=== PATIENT | female | born 1960 | race Caucasian/White ===

== ENCOUNTER 2018-02-09 06:20 | Inpatient (IN) | payer OTHER ==
[2018-02-09] MEDS: FUROSEMIDE 40 MG INJ IV (06:40)
[2018-02-09] MEDS: DILTIAZEM 50 MG INJ IV ×2 (06:41→07:10)
[2018-02-09 06:46] LABS: ADD MAN DIFF? NO
[2018-02-09] MEDS: ALBUTEROL 0.083% (NEB) 2.5 MG/3 ML AMP INH (06:46)
[2018-02-09 06:51] LABS: WHITE BLOOD COUNT 18.8 10^3/ul (4.8-10.8)
[2018-02-09 06:51] LABS: BASOPHILS % 0.2 % (0.0-2.0); EOSINOPHILS # 0.2 10^3/ul (0.0-0.5); HEMATOCRIT 40.3 % (37.0-47.0); HEMOGLOBIN 13.1 g/dl (12.0-16.0); LYMPHOCYTES # 1.7 10^3/ul (0.8-2.9); LYMPHOCYTES % 9.1 % (15.0-51.0); MEAN CORPUSCULAR HEMOGLOBIN 29.2 pg (29.0-33.0); MEAN CORPUSCULAR HGB CONC 32.5 g/dl (32.0-37.0); MEAN CORPUSCULAR VOLUME 89.8 fl (82.0-101.0); MEAN PLATELET VOLUME 10.1 fl (7.4-10.4); MONOCYTE # 0.7 10^3/ul (0.3-0.9); MONOCYTES % 3.6 % (0.0-11.0); NEUTROPHIL # 16.1 10^3/ul (1.6-7.5); NEUTROPHILS % 85.6 % (39.0-77.0); PLATELET COUNT 341 10^3/UL (140-415); RED BLOOD COUNT 4.49 10^6/ul (4.20-5.40); RED CELL DISTRIBUTION WIDTH 13.6 % (11.5-14.5)
[2018-02-09 07:11] LABS: INR 2.27; PARTIAL THROMBOPLASTIN TIME 40.5 Sec (25.0-35.0); PROTIME 25.6 Sec (11.9-14.9)
[2018-02-09 07:11] LABS: LACTIC ACID 2.4 mmol/L (0.5-2.0)
[2018-02-09] MEDS: CEFTRIAXONE 1 GM/50 ML (PMX) 50 ML IVPB (07:11)
[2018-02-09 07:19] LABS: ALANINE AMINOTRANSFERASE 30 IU/L (13-69); ALBUMIN 4.7 g/dl (3.3-4.9); ALBUMIN/GLOBULIN RATIO 1.46; ALKALINE PHOSPHATASE 74 IU/L (42-121); ANION GAP 21 (8-16); ASPARTATE AMINO TRANSFERASE 21 IU/L (15-46); BILIRUBIN,INDIRECT 0.1 mg/dl (0-1.1); BILIRUBIN,TOTAL 0.1 mg/dl (0.2-1.3); BLOOD UREA NITROGEN 23 mg/dl (7-20); CALCIUM 9.3 mg/dl (8.4-10.2); CARBON DIOXIDE 26 mmol/L (21-31); CHLORIDE 99 mmol/L (97-110); CREATININE 0.65 mg/dl (0.44-1.00); GLUCOSE 238 mg/dl (70-220); POTASSIUM 3.7 mmol/L (3.5-5.1); SODIUM 142 mmol/L (135-144); TOTAL PROTEIN 7.9 g/dl (6.1-8.1)
[2018-02-09] MEDS: METHYLPREDNISOLONE 125 MG INJ IV ×3 (07:29→17:49)
[2018-02-09 07:31] LABS: B-TYPE NATRIURETIC PEPTIDE 200 PG/ML (0-125); TROPONIN-I 0.034 ng/ml (0.00-0.12)
[2018-02-09] MEDS: AZITHROMYCIN 250 MG in SOD CHLORIDE 0.9% 250 ML IVPB (07:39)
[2018-02-09] MEDS: DILTIAZEM-D5W 125MG/125ML DRIP 125 ML IV (07:39)
[2018-02-09 08:00] LABS: AADO2 Arterial 524.5 mmHg (7.0-24.0); Arterial Base Excess -0.9 mmol/L (-3.0-3); Arterial Blood Gas Oxygen Sat 98.6 mmHG (95.0-98.0); Arterial COHb 0 % (0.0-3.0); Arterial Fraction of Oxyhgb 98.4 % (93.0-99.0); Arterial MetHb 0.2 % (0.0-1.5); Blood Gas PS 7; MODE MASK - BIPAP; Site Right Radial
[2018-02-09] MEDS: LORAZEPAM 2 MG INJ IV ×2 (08:25→10:30)
[2018-02-09] MEDS: ALBUTEROL/IPRATROPIUM (NEB) 3 ML AMP HHN ×4 (09:00→21:27)
[2018-02-09] MEDS ORDERED: HYDROCODONE/APAP (5/325) TAB PO (09:00)
[2018-02-09] MEDS ORDERED: NACL 0.9% 3 ML SYG IV (09:00)
[2018-02-09] MEDS ORDERED: NITROGLYCERIN (SL) 0.4 MG TAB SL (09:00)
[2018-02-09] MEDS ORDERED: MAGNESIUM HYDROXIDE 30ML CUP PO (09:00)
[2018-02-09] MEDS ORDERED: NA PHOSPHATE/BIPHOS 133 ML ENEMA PR (09:00)
[2018-02-09] MEDS ORDERED: hydrALAzine 20 MG INJ IV (09:00)
[2018-02-09] MEDS ORDERED: ACETAMINOPHEN 325 MG TAB PO (09:00)
[2018-02-09] MEDS ORDERED: morphine 2 MG INJ IV (09:00)
[2018-02-09] MEDS ORDERED: LORAZEPAM 2 MG INJ IV (09:00)
[2018-02-09] MEDS ORDERED: FERROUS SULFATE 134 MG PO (09:00)
[2018-02-09] MEDS ORDERED: DOCUSATE SODIUM 100 MG CAP PO (09:00)
[2018-02-09] MEDS ORDERED: ONDANSETRON 4 MG INJ IV (09:00)
[2018-02-09] MEDS ORDERED: NON-FORMULARY/PATIENT OWN MED (Pravastatin Sodium* 80 MG) PO (09:00)
[2018-02-09] MEDS: HEPARIN 5,000 UNIT/0.5 ML VIAL SC ×2 (10:27→21:36)
[2018-02-09] MEDS: LEVALBUTEROL (NEB) 0.63 MG/3 ML AMP HHN (10:43)
[2018-02-09] MEDS: WARFARIN 2 MG TAB PO ×2 (10:54→17:22)
[2018-02-09] MEDS: INSULIN ASPART [NOVOLOG] 3 ML PEN SC ×4 (10:55→21:35)
[2018-02-09] MEDS: PIPER-TAZO 3.375 GM IV (PMX) 100 ML IVPB ×2 (11:37→17:49)
[2018-02-09] MEDS: DIGOXIN 500 MCG INJ IV ×2 (11:37→17:48)
[2018-02-09] MEDS ORDERED: METHYLPREDNISOLONE 125 MG INJ IM (12:00)
[2018-02-09 13:29] LABS: FREE T4 (FREE THYROXINE) 1.33 ng/dl (0.64-1.79)
[2018-02-09 14:34] LABS: CREATINE KINASE 72 IU/L (23-200)
[2018-02-09 14:45] LABS: LACTIC ACID 2.5 mmol/L (0.5-2.0)
[2018-02-09 14:48] LABS: CK INDEX 2.8; CK-MB 2.01 ng/ml (0.0-2.4); TROPONIN-I 0.113 ng/ml (0.00-0.12)
[2018-02-09] MEDS ORDERED: DILTIAZEM-D5W 125MG/125ML DRIP 125 ML IV (15:00)
[2018-02-09] MEDS: MOMETASONE 0.24 GM INHALER INH (16:34)
[2018-02-09] MEDS: DILTIAZEM 30 MG TAB NGT (17:49)
[2018-02-09 18:40] LABS: LACTIC ACID 1.8 mmol/L (0.5-2.0)
[2018-02-09] MEDS: FERROUS SULFATE (EC) 325 MG TAB PO (21:31)
[2018-02-09] MEDS: ATORVASTATIN 10 MG TAB PO (21:31)
[2018-02-09 22:32] LABS: CREATINE KINASE 76 IU/L (23-200); INR 2.74; PROTIME 29.8 Sec (11.9-14.9); PT RATIO 2.3
[2018-02-09 22:33] LABS: PARTIAL THROMBOPLASTIN TIME 69.9 Sec (25.0-35.0)
[2018-02-09 22:36] LABS: LACTIC ACID 1.9 mmol/L (0.5-2.0)
[2018-02-09 22:44] LABS: CK INDEX 2.9; CK-MB 2.23 ng/ml (0.0-2.4); TROPONIN-I 0.097 ng/ml (0.00-0.12)
[2018-02-10] MEDS: DILTIAZEM 30 MG TAB NGT ×4 (00:04→17:33)
[2018-02-10] MEDS: METHYLPREDNISOLONE 125 MG INJ IV ×4 (00:06→17:33)
[2018-02-10] MEDS: PIPER-TAZO 3.375 GM IV (PMX) 100 ML IVPB ×4 (00:08→17:34)
[2018-02-10] MEDS: INSULIN ASPART [NOVOLOG] 3 ML PEN SC ×7 (01:13→20:41)
[2018-02-10] MEDS: ALBUTEROL/IPRATROPIUM (NEB) 3 ML AMP HHN ×7 (01:17→20:30)
[2018-02-10 01:21] LABS: LACTIC ACID 1.2 mmol/L (0.5-2.0)
[2018-02-10] MEDS: ACCU-CHEK XX (02:00)
[2018-02-10] MEDS: PANTOPRAZOLE 40 MG INJ IV (05:57)
[2018-02-10 08:32] LABS: ADD MAN DIFF? NO
[2018-02-10 08:38] LABS: HEMATOCRIT 36.1 % (37.0-47.0); HEMOGLOBIN 11.8 g/dl (12.0-16.0); LYMPHOCYTES # 0.6 10^3/ul (0.8-2.9); LYMPHOCYTES % 5.9 % (15.0-51.0); MEAN CORPUSCULAR HGB CONC 32.7 g/dl (32.0-37.0); MEAN CORPUSCULAR VOLUME 88.7 fl (82.0-101.0); MONOCYTE # 0.3 10^3/ul (0.3-0.9); MONOCYTES % 2.3 % (0.0-11.0); NEUTROPHIL # 9.7 10^3/ul (1.6-7.5); PLATELET COUNT 283 10^3/UL (140-415); RED BLOOD COUNT 4.07 10^6/ul (4.20-5.40); RED CELL DISTRIBUTION WIDTH 13.7 % (11.5-14.5)
[2018-02-10 08:38] LABS: WHITE BLOOD COUNT 10.7 10^3/ul (4.8-10.8)
[2018-02-10] MEDS: FERROUS SULFATE (EC) 325 MG TAB PO ×2 (08:44→08:51)
[2018-02-10 08:52] LABS: PROTIME 31.2 Sec (11.9-14.9); PT RATIO 2.4
[2018-02-10] MEDS: HEPARIN 5,000 UNIT/0.5 ML VIAL SC (08:52)
[2018-02-10 08:53] LABS: ANION GAP 12 (8-16); BLOOD UREA NITROGEN 23 mg/dl (7-20); CALCIUM 9.3 mg/dl (8.4-10.2); CARBON DIOXIDE 31 mmol/L (21-31); CHLORIDE 105 mmol/L (97-110); GLUCOSE 225 mg/dl (70-220); MAGNESIUM 1.8 mg/dl (1.7-2.5); PHOSPHORUS 3.8 mg/dl (2.5-4.9); POTASSIUM 4.4 mmol/L (3.5-5.1); SODIUM 144 mmol/L (135-144)
[2018-02-10] MEDS: MOMETASONE 0.24 GM INHALER INH (08:53)
[2018-02-10 08:54] LABS: CHOLESTEROL 143 mg/dl (100-200)
[2018-02-10 08:54] LABS: CHOL/HDL RATIO 2.1 RATIO; HDL CHOLESTEROL 66 mg/dl (35-98); LDL CHOLESTEROL,CALCULATED 60 mg/dl; TRIGLYCERIDES 87 mg/dl (0-149)
[2018-02-10 09:24] LABS: THYROID STIMULATING HORMONE 0.077 MIU/L (0.465-4.680)
[2018-02-10] MEDS: WARFARIN 2 MG TAB PO (17:32)
[2018-02-10] MEDS: ATORVASTATIN 10 MG TAB PO (20:10)
[2018-02-11] MEDS: PIPER-TAZO 3.375 GM IV (PMX) 100 ML IVPB ×4 (00:15→17:19)
[2018-02-11] MEDS: METHYLPREDNISOLONE 125 MG INJ IV ×4 (00:15→17:19)
[2018-02-11] MEDS: DILTIAZEM 30 MG TAB NGT ×4 (00:16→17:18)
[2018-02-11] MEDS: INSULIN ASPART [NOVOLOG] 3 ML PEN SC ×8 (01:00→21:36)
[2018-02-11] MEDS: ALBUTEROL/IPRATROPIUM (NEB) 3 ML AMP HHN ×5 (01:19→20:39)
[2018-02-11] MEDS: ACCU-CHEK XX (02:01)
[2018-02-11] MEDS: PANTOPRAZOLE 40 MG INJ IV (05:04)
[2018-02-11 06:26] LABS: ADD MAN DIFF? NO
[2018-02-11 06:32] LABS: ABNORMAL IP MESSAGE 1; BASOPHILS % 0.1 % (0.0-2.0); HEMATOCRIT 33.4 % (37.0-47.0); LYMPHOCYTES # 0.5 10^3/ul (0.8-2.9); LYMPHOCYTES % 4.7 % (15.0-51.0); MEAN CORPUSCULAR HEMOGLOBIN 29.3 pg (29.0-33.0); MEAN CORPUSCULAR HGB CONC 32.9 g/dl (32.0-37.0); MEAN CORPUSCULAR VOLUME 88.8 fl (82.0-101.0); MEAN PLATELET VOLUME 10.1 fl (7.4-10.4); MONOCYTE # 0.1 10^3/ul (0.3-0.9); MONOCYTES % 1.1 % (0.0-11.0); NEUTROPHIL # 9.6 10^3/ul (1.6-7.5); NEUTROPHILS % 93.2 % (39.0-77.0); PLATELET COUNT 264 10^3/UL (140-415); RED BLOOD COUNT 3.76 10^6/ul (4.20-5.40); RED CELL DISTRIBUTION WIDTH 13.8 % (11.5-14.5)
[2018-02-11 06:32] LABS: WHITE BLOOD COUNT 10.3 10^3/ul (4.8-10.8)
[2018-02-11 06:40] LABS: POSITIVE DIFF @See below
[2018-02-11 06:57] LABS: DIGOXIN 0.9 ng/ml (1.0-2.0)
[2018-02-11 07:11] LABS: PROTIME 41.1 Sec (11.9-14.9); PT RATIO 3.2
[2018-02-11 07:30] LABS: ALANINE AMINOTRANSFERASE 170 IU/L (13-69); ALBUMIN 3.6 g/dl (3.3-4.9); ALBUMIN/GLOBULIN RATIO 1.24; ALKALINE PHOSPHATASE 70 IU/L (42-121); ANION GAP 14 (8-16); ASPARTATE AMINO TRANSFERASE 70 IU/L (15-46); BLOOD UREA NITROGEN 33 mg/dl (7-20); CALCIUM 8.9 mg/dl (8.4-10.2); CARBON DIOXIDE 30 mmol/L (21-31); CHLORIDE 103 mmol/L (97-110); CREATININE 0.68 mg/dl (0.44-1.00); GLUCOSE 341 mg/dl (70-220); POTASSIUM 4.2 mmol/L (3.5-5.1); SODIUM 143 mmol/L (135-144); TOTAL PROTEIN 6.5 g/dl (6.1-8.1)
[2018-02-11 07:35] LABS: MAGNESIUM 1.9 mg/dl (1.7-2.5)
[2018-02-11 07:54] LABS: THYROID STIMULATING HORMONE 0.022 MIU/L (0.465-4.680)
[2018-02-11] MEDS: MOMETASONE 0.24 GM INHALER INH (09:00)
[2018-02-11] MEDS: FERROUS SULFATE (EC) 325 MG TAB PO ×2 (09:03→21:15)
[2018-02-11] MEDS ORDERED: DEXTROSE 50% 50 ML SYRINGE IV ×2 (21:00)
[2018-02-11] MEDS ORDERED: GLUCOSE GEL 15 GRAM TUBE PO ×2 (21:00)
[2018-02-11] MEDS ORDERED: GLUCAGON 1 MG INJ IM (21:00)
[2018-02-11] MEDS ORDERED: GLUCOSE GEL 15 GRAM TUBE BUCCAL (21:00)
[2018-02-11] MEDS: ATORVASTATIN 10 MG TAB PO (21:15)
[2018-02-11] MEDS: INSULIN GLARGINE [LANtus] 3 ML PEN SC (22:03)
[2018-02-12] MEDS: PIPER-TAZO 3.375 GM IV (PMX) 100 ML IVPB ×4 (00:17→17:44)
[2018-02-12] MEDS: METHYLPREDNISOLONE 125 MG INJ IV ×3 (00:18→12:05)
[2018-02-12] MEDS: DILTIAZEM 30 MG TAB NGT ×3 (00:18→12:07)
[2018-02-12] MEDS: INSULIN ASPART [NOVOLOG] 3 ML PEN SC ×9 (00:20→21:32)
[2018-02-12] MEDS: ACCU-CHEK XX (00:34)
[2018-02-12] MEDS: PANTOPRAZOLE 40 MG INJ IV (05:16)
[2018-02-12 06:42] LABS: ADD MAN DIFF? NO
[2018-02-12 06:46] LABS: WHITE BLOOD COUNT 10.5 10^3/ul (4.8-10.8)
[2018-02-12 06:46] LABS: HEMATOCRIT 33.5 % (37.0-47.0); HEMOGLOBIN 11.1 g/dl (12.0-16.0); LYMPHOCYTES # 0.7 10^3/ul (0.8-2.9); LYMPHOCYTES % 6.3 % (15.0-51.0); MEAN CORPUSCULAR HEMOGLOBIN 29.4 pg (29.0-33.0); MEAN CORPUSCULAR HGB CONC 33.1 g/dl (32.0-37.0); MEAN CORPUSCULAR VOLUME 88.6 fl (82.0-101.0); MEAN PLATELET VOLUME 10.1 fl (7.4-10.4); MONOCYTE # 0.1 10^3/ul (0.3-0.9); MONOCYTES % 1.3 % (0.0-11.0); NEUTROPHIL # 9.6 10^3/ul (1.6-7.5); NEUTROPHILS % 91.2 % (39.0-77.0); PLATELET COUNT 256 10^3/UL (140-415); RED BLOOD COUNT 3.78 10^6/ul (4.20-5.40); RED CELL DISTRIBUTION WIDTH 13.6 % (11.5-14.5)
[2018-02-12 07:04] LABS: INR 3.59; PT RATIO 2.9
[2018-02-12 07:12] LABS: ANION GAP 15 (8-16); BLOOD UREA NITROGEN 28 mg/dl (7-20); CALCIUM 9.1 mg/dl (8.4-10.2); CARBON DIOXIDE 29 mmol/L (21-31); CHLORIDE 106 mmol/L (97-110); CREATININE 0.66 mg/dl (0.44-1.00); GLUCOSE 229 mg/dl (70-220); POTASSIUM 4.1 mmol/L (3.5-5.1); SODIUM 146 mmol/L (135-144)
[2018-02-12] MEDS: ALBUTEROL/IPRATROPIUM (NEB) 3 ML AMP HHN (08:13)
[2018-02-12] MEDS: MOMETASONE 0.24 GM INHALER INH (09:02)
[2018-02-12] MEDS: FERROUS SULFATE (EC) 325 MG TAB PO ×2 (09:03→20:54)
[2018-02-12] MEDS ORDERED: IOHEXOL 100 ML (16:17)
[2018-02-12] MEDS ORDERED: SOD CHLORIDE 0.9% 100 ML (16:17)
[2018-02-12] MEDS ORDERED: INSULIN GLARGINE [LANtus] 3 ML PEN SC (20:00)
[2018-02-12] MEDS: ATORVASTATIN 10 MG TAB PO (20:54)
[2018-02-12] MEDS: DILTIAZEM (CD) 120 MG CAP PO (20:54)
[2018-02-12] MEDS: INSULIN GLARGINE [LANtus] 3 ML PEN SC (21:33)
[2018-02-13] MEDS: ACCU-CHEK XX (02:00)
[2018-02-13] MEDS: INSULIN ASPART [NOVOLOG] 3 ML PEN SC ×9 (02:13→21:48)
[2018-02-13] MEDS: ALBUTEROL/IPRATROPIUM (NEB) 3 ML AMP HHN ×2 (03:25→10:40)
[2018-02-13] MEDS: LEVOFLOXACIN 750 MG TABLET PO (05:37)
[2018-02-13 06:44] LABS: ADD MAN DIFF? NO
[2018-02-13 06:50] LABS: BASOPHILS % 0.1 % (0.0-2.0); HEMATOCRIT 34.1 % (37.0-47.0); HEMOGLOBIN 11.1 g/dl (12.0-16.0); LYMPHOCYTES # 1.3 10^3/ul (0.8-2.9); LYMPHOCYTES % 12.5 % (15.0-51.0); MEAN CORPUSCULAR HEMOGLOBIN 28.8 pg (29.0-33.0); MEAN CORPUSCULAR HGB CONC 32.6 g/dl (32.0-37.0); MEAN CORPUSCULAR VOLUME 88.3 fl (82.0-101.0); MEAN PLATELET VOLUME 9.9 fl (7.4-10.4); MONOCYTE # 0.6 10^3/ul (0.3-0.9); MONOCYTES % 5.5 % (0.0-11.0); NEUTROPHIL # 8.3 10^3/ul (1.6-7.5); NEUTROPHILS % 80.4 % (39.0-77.0); PLATELET COUNT 248 10^3/UL (140-415); RED BLOOD COUNT 3.86 10^6/ul (4.20-5.40); RED CELL DISTRIBUTION WIDTH 13.4 % (11.5-14.5)
[2018-02-13 06:50] LABS: WHITE BLOOD COUNT 10.3 10^3/ul (4.8-10.8)
[2018-02-13 07:19] LABS: ANION GAP 11 (8-16); BLOOD UREA NITROGEN 33 mg/dl (7-20); CALCIUM 8.9 mg/dl (8.4-10.2); CARBON DIOXIDE 34 mmol/L (21-31); CHLORIDE 104 mmol/L (97-110); GLUCOSE 129 mg/dl (70-220); POTASSIUM 3.8 mmol/L (3.5-5.1); SODIUM 145 mmol/L (135-144)
[2018-02-13 07:23] LABS: INR 2.67; PROTIME 29.2 Sec (11.9-14.9); PT RATIO 2.3
[2018-02-13] MEDS: FERROUS SULFATE (EC) 325 MG TAB PO ×2 (08:53→20:34)
[2018-02-13] MEDS: predniSONE 20 MG TAB PO (08:53)
[2018-02-13] MEDS: DILTIAZEM (CD) 120 MG CAP PO ×2 (08:53→20:33)
[2018-02-13] MEDS: MOMETASONE 0.24 GM INHALER INH (09:01)
[2018-02-13] MEDS: ATORVASTATIN 10 MG TAB PO (20:33)
[2018-02-13] MEDS: BENZONATATE 100 MG CAP PO (20:33)
[2018-02-13] MEDS: INSULIN GLARGINE [LANtus] 3 ML PEN SC (21:18)
[2018-02-14] MEDS: INSULIN ASPART [NOVOLOG] 3 ML PEN SC ×9 (01:52→20:14)
[2018-02-14] MEDS: ACCU-CHEK XX (01:53)
[2018-02-14] MEDS: LEVOFLOXACIN 750 MG TABLET PO (05:32)
[2018-02-14 05:49] LABS: ADD MAN DIFF? NO
[2018-02-14 05:55] LABS: BASOPHILS % 0.2 % (0.0-2.0); EOSINOPHILS # 0.1 10^3/ul (0.0-0.5); EOSINOPHILS % 0.6 % (0.0-7.0); HEMATOCRIT 36.6 % (37.0-47.0); HEMOGLOBIN 12.2 g/dl (12.0-16.0); LYMPHOCYTES % 19.5 % (15.0-51.0); MEAN CORPUSCULAR HEMOGLOBIN 29.3 pg (29.0-33.0); MEAN CORPUSCULAR HGB CONC 33.3 g/dl (32.0-37.0); MEAN CORPUSCULAR VOLUME 87.8 fl (82.0-101.0); MEAN PLATELET VOLUME 9.7 fl (7.4-10.4); MONOCYTE # 0.7 10^3/ul (0.3-0.9); MONOCYTES % 7.3 % (0.0-11.0); NEUTROPHIL # 7.1 10^3/ul (1.6-7.5); NEUTROPHILS % 69.9 % (39.0-77.0); PLATELET COUNT 264 10^3/UL (140-415); RED BLOOD COUNT 4.17 10^6/ul (4.20-5.40); RED CELL DISTRIBUTION WIDTH 13.2 % (11.5-14.5)
[2018-02-14 05:55] LABS: WHITE BLOOD COUNT 10.2 10^3/ul (4.8-10.8)
[2018-02-14 06:22] LABS: PROTIME 22.2 Sec (11.9-14.9); PT RATIO 1.7
[2018-02-14 06:25] LABS: ANION GAP 11 (8-16); BLOOD UREA NITROGEN 29 mg/dl (7-20); CALCIUM 8.6 mg/dl (8.4-10.2); CARBON DIOXIDE 36 mmol/L (21-31); CHLORIDE 102 mmol/L (97-110); CREATININE 0.58 mg/dl (0.44-1.00); GLUCOSE 102 mg/dl (70-220); POTASSIUM 3.7 mmol/L (3.5-5.1); SODIUM 145 mmol/L (135-144)
[2018-02-14] MEDS: predniSONE 20 MG TAB PO (08:30)
[2018-02-14] MEDS: FERROUS SULFATE (EC) 325 MG TAB PO ×2 (08:30→20:09)
[2018-02-14] MEDS: MOMETASONE 0.24 GM INHALER INH (09:00)
[2018-02-14] MEDS: ALBUTEROL/IPRATROPIUM (NEB) 3 ML AMP HHN (09:17)
[2018-02-14] MEDS: DILTIAZEM (CD) 120 MG CAP PO ×2 (12:24→20:19)
[2018-02-14] MEDS: ALBUTEROL HFA 8 GM INHALER INH (16:37)
[2018-02-14] MEDS: ATORVASTATIN 10 MG TAB PO (20:09)
[2018-02-14] MEDS: INSULIN GLARGINE [LANtus] 3 ML PEN SC (20:12)
[2018-02-15] MEDS: ACCU-CHEK XX (00:49)
[2018-02-15] MEDS: INSULIN ASPART [NOVOLOG] 3 ML PEN SC ×10 (01:01→20:59)
[2018-02-15] MEDS: LEVOFLOXACIN 750 MG TABLET PO (05:23)
[2018-02-15 06:30] LABS: ADD MAN DIFF? NO
[2018-02-15 06:40] LABS: WHITE BLOOD COUNT 9.8 10^3/ul (4.8-10.8)
[2018-02-15 06:40] LABS: BASOPHILS % 0.4 % (0.0-2.0); EOSINOPHILS # 0.2 10^3/ul (0.0-0.5); EOSINOPHILS % 2.2 % (0.0-7.0); HEMATOCRIT 37.3 % (37.0-47.0); HEMOGLOBIN 12.4 g/dl (12.0-16.0); LYMPHOCYTES # 2.3 10^3/ul (0.8-2.9); MEAN CORPUSCULAR HEMOGLOBIN 29.4 pg (29.0-33.0); MEAN CORPUSCULAR HGB CONC 33.2 g/dl (32.0-37.0); MEAN CORPUSCULAR VOLUME 88.4 fl (82.0-101.0); MEAN PLATELET VOLUME 9.6 fl (7.4-10.4); MONOCYTE # 0.6 10^3/ul (0.3-0.9); MONOCYTES % 5.6 % (0.0-11.0); NEUTROPHIL # 6.4 10^3/ul (1.6-7.5); NEUTROPHILS % 65.5 % (39.0-77.0); PLATELET COUNT 273 10^3/UL (140-415); RED BLOOD COUNT 4.22 10^6/ul (4.20-5.40); RED CELL DISTRIBUTION WIDTH 13.2 % (11.5-14.5)
[2018-02-15 06:57] LABS: ALANINE AMINOTRANSFERASE 153 IU/L (13-69); ALBUMIN 3.2 g/dl (3.3-4.9); ALKALINE PHOSPHATASE 56 IU/L (42-121); ASPARTATE AMINO TRANSFERASE 23 IU/L (15-46); BILIRUBIN,INDIRECT 0.3 mg/dl (0-1.1); BILIRUBIN,TOTAL 0.3 mg/dl (0.2-1.3); TOTAL PROTEIN 5.9 g/dl (6.1-8.1)
[2018-02-15 07:01] LABS: ANION GAP 14 (8-16); BLOOD UREA NITROGEN 27 mg/dl (7-20); CALCIUM 8.4 mg/dl (8.4-10.2); CARBON DIOXIDE 33 mmol/L (21-31); CHLORIDE 100 mmol/L (97-110); CREATININE 0.57 mg/dl (0.44-1.00); GLUCOSE 147 mg/dl (70-220); POTASSIUM 3.6 mmol/L (3.5-5.1); SODIUM 143 mmol/L (135-144)
[2018-02-15 07:39] LABS: INR 1.32; PROTIME 16.6 Sec (11.9-14.9); PT RATIO 1.3
[2018-02-15] MEDS: DILTIAZEM (CD) 120 MG CAP PO ×2 (08:33→20:37)
[2018-02-15] MEDS: FERROUS SULFATE (EC) 325 MG TAB PO ×2 (08:33→20:36)
[2018-02-15] MEDS: predniSONE 20 MG TAB PO (08:34)
[2018-02-15] MEDS: LINAGLIPTIN 5 MG TABLET PO (13:19)
[2018-02-15] MEDS: ALBUTEROL/IPRATROPIUM (NEB) 3 ML AMP HHN (15:58)
[2018-02-15] MEDS: INSULIN GLARGINE [LANtus] 3 ML PEN SC (20:29)
[2018-02-15] MEDS: ATORVASTATIN 10 MG TAB PO (20:37)
[2018-02-16] MEDS: ACCU-CHEK XX (01:53)
[2018-02-16] MEDS: LEVOFLOXACIN 750 MG TABLET PO (05:29)
[2018-02-16 06:30] LABS: ADD MAN DIFF? NO
[2018-02-16 06:39] LABS: WHITE BLOOD COUNT 9.8 10^3/ul (4.8-10.8)
[2018-02-16 06:39] LABS: BASOPHILS % 0.1 % (0.0-2.0); EOSINOPHILS # 0.1 10^3/ul (0.0-0.5); EOSINOPHILS % 1.4 % (0.0-7.0); HEMATOCRIT 35.6 % (37.0-47.0); HEMOGLOBIN 11.9 g/dl (12.0-16.0); LYMPHOCYTES # 2.4 10^3/ul (0.8-2.9); LYMPHOCYTES % 24.4 % (15.0-51.0); MEAN CORPUSCULAR HEMOGLOBIN 29.3 pg (29.0-33.0); MEAN CORPUSCULAR HGB CONC 33.4 g/dl (32.0-37.0); MEAN CORPUSCULAR VOLUME 87.7 fl (82.0-101.0); MEAN PLATELET VOLUME 9.7 fl (7.4-10.4); MONOCYTE # 0.5 10^3/ul (0.3-0.9); MONOCYTES % 5.4 % (0.0-11.0); NEUTROPHIL # 6.5 10^3/ul (1.6-7.5); PLATELET COUNT 280 10^3/UL (140-415); RED BLOOD COUNT 4.06 10^6/ul (4.20-5.40); RED CELL DISTRIBUTION WIDTH 13.7 % (11.5-14.5)
[2018-02-16 06:50] LABS: INR 1.18; PROTIME 15.2 Sec (11.9-14.9); PT RATIO 1.2
[2018-02-16] MEDS ORDERED: ONDANSETRON 4 MG INJ (07:00)
[2018-02-16 07:18] LABS: ANION GAP 14 (8-16); BLOOD UREA NITROGEN 27 mg/dl (7-20); CALCIUM 8.6 mg/dl (8.4-10.2); CARBON DIOXIDE 33 mmol/L (21-31); CHLORIDE 100 mmol/L (97-110); CREATININE 0.58 mg/dl (0.44-1.00); GLUCOSE 136 mg/dl (70-220); POTASSIUM 3.5 mmol/L (3.5-5.1); SODIUM 143 mmol/L (135-144)
[2018-02-16] MEDS: INSULIN ASPART [NOVOLOG] 3 ML PEN SC ×7 (08:15→20:19)
[2018-02-16] MEDS: DILTIAZEM (CD) 120 MG CAP PO ×3 (09:00→20:16)
[2018-02-16] MEDS: LINAGLIPTIN 5 MG TABLET PO ×2 (09:00→14:46)
[2018-02-16] MEDS: predniSONE 20 MG TAB PO ×2 (09:00→14:46)
[2018-02-16] MEDS: FERROUS SULFATE (EC) 325 MG TAB PO ×2 (09:00→20:16)
[2018-02-16] MEDS ORDERED: FENTAnyl 50 MCG/ML VIAL (10:00)
[2018-02-16] MEDS ORDERED: MIDAZOLAM 1 MG/ML 2 ML INJ (10:00)
[2018-02-16] MEDS: LIDOCAINE 1% (MDV) 20 ML INJ (10:21)
[2018-02-16] MEDS ORDERED: PHENYLephrine (100 MCG/ML) 5ML SYG (10:25)
[2018-02-16] MEDS ORDERED: PROVENTIL HFA 6.7GM INHALER (10:53)
[2018-02-16] MEDS ORDERED: LIDOCAINE 2% (SDV) 5 ML INJ (11:00)
[2018-02-16] MEDS ORDERED: ETOMIDATE 20 MG INJ (11:00)
[2018-02-16] MEDS ORDERED: ROCURONIUM 50 MG INJ (11:00)
[2018-02-16] MEDS ORDERED: NEOSTIGMINE 3 MG/3 ML SYRINGE (11:01)
[2018-02-16] MEDS ORDERED: GLYCOPYRROLATE 1 MG INJ (11:01)
[2018-02-16] MEDS: ALBUTEROL/IPRATROPIUM (NEB) 3 ML AMP HHN ×2 (14:14→20:55)
[2018-02-16] MEDS: ACETYLCYSTEINE 20% 4 ML VIAL NEB ×2 (14:17→20:55)
[2018-02-16] MEDS: WARFARIN 3 MG TAB PO (14:24)
[2018-02-16] MEDS: ATORVASTATIN 10 MG TAB PO (20:16)
[2018-02-16] MEDS: INSULIN GLARGINE [LANtus] 3 ML PEN SC (20:20)
[2018-02-16] MEDS: ENOXAPARIN 100 MG/ML SYG SC (20:23)
[2018-02-17] MEDS: ALBUTEROL/IPRATROPIUM (NEB) 3 ML AMP HHN ×5 (01:48→19:31)
[2018-02-17] MEDS: ACCU-CHEK XX (01:51)
[2018-02-17] MEDS: ACETYLCYSTEINE 20% 4 ML VIAL NEB ×3 (02:00→19:31)
[2018-02-17] MEDS: LEVOFLOXACIN 750 MG TABLET PO (05:36)
[2018-02-17 06:43] LABS: INR 1.17; PROTIME 15.1 Sec (11.9-14.9); PT RATIO 1.2
[2018-02-17] MEDS: INSULIN ASPART [NOVOLOG] 3 ML PEN SC ×7 (08:13→20:30)
[2018-02-17] MEDS: LINAGLIPTIN 5 MG TABLET PO (08:42)
[2018-02-17] MEDS: ENOXAPARIN 100 MG/ML SYG SC ×2 (08:43→20:33)
[2018-02-17] MEDS: predniSONE 20 MG TAB PO (08:43)
[2018-02-17] MEDS: FERROUS SULFATE (EC) 325 MG TAB PO ×2 (08:43→20:27)
[2018-02-17] MEDS: DILTIAZEM (CD) 120 MG CAP PO ×2 (08:43→20:27)
[2018-02-17] MEDS: WARFARIN 2 MG TAB NGT (17:52)
[2018-02-17] MEDS: ATORVASTATIN 10 MG TAB PO (20:27)
[2018-02-17] MEDS: INSULIN GLARGINE [LANtus] 3 ML PEN SC (20:29)
[2018-02-18] MEDS: ALBUTEROL/IPRATROPIUM (NEB) 3 ML AMP HHN ×3 (01:25→12:51)
[2018-02-18] MEDS: ACETYLCYSTEINE 20% 4 ML VIAL NEB ×3 (01:25→12:52)
[2018-02-18] MEDS: ACCU-CHEK XX (02:44)
[2018-02-18] MEDS: LEVOFLOXACIN 750 MG TABLET PO (06:12)
[2018-02-18 06:41] LABS: INR 1.18; PROTIME 15.2 Sec (11.9-14.9); PT RATIO 1.2
[2018-02-18] MEDS: INSULIN ASPART [NOVOLOG] 3 ML PEN SC ×4 (08:13→12:43)
[2018-02-18] MEDS: FERROUS SULFATE (EC) 325 MG TAB PO (10:09)
[2018-02-18] MEDS: DILTIAZEM (CD) 120 MG CAP PO (10:10)
[2018-02-18] MEDS: LINAGLIPTIN 5 MG TABLET PO (10:11)
[2018-02-18] MEDS: ENOXAPARIN 100 MG/ML SYG SC (10:20)
== END 2018-02-18 16:50 | disposition home or self-care (01) | DRG 167 ==
LOC: MS2 02-14 03:00 → E/R 06:20 → TEL 07:45
PROC: 0B9J8ZX Drainage of Left Lower Lung Lobe, Via Natural or Artificial Opening Endoscopic, Diagnostic (ICD-10-PCS; principal; 2018-02-16 09:00)
DX: J96.01 Acute respiratory failure with hypoxia (principal); J44.1 Chronic obstructive pulmonary disease with (acute) exacerbation; J98.11 Atelectasis; I48.91 Unspecified atrial fibrillation; Z79.01 Long term (current) use of anticoagulants; I10 Essential (primary) hypertension; Z95.1 Presence of aortocoronary bypass graft; Z87.74 Personal history of (corrected) congenital malformations of heart and circulatory system; E11.65 Type 2 diabetes mellitus with hyperglycemia; I25.10 Atherosclerotic heart disease of native coronary artery without angina pectoris; Z95.2 Presence of prosthetic heart valve; E05.80 Other thyrotoxicosis without thyrotoxic crisis or storm
CPT/HCPCS: 36415; 36600; 71045; 71275; 80048; 80053; 80061; 80076; 80162; 82550; 82553; 82803; 82962; 83036; 83605; 83735; 83880; 84100; 84439; 84443; 84484; 85025; 85610; 85730; 87040; 92526; 92610; 93005; 93306; 94640; 94660; 94664; 94667; 94668; 96365; 96366; 96367; 96368; 96372; 96375; 96376; 97162; 97167; 97535; 99291-25